=== PATIENT | female | born 1945 | race American Indian/Alaskan Native ===

== ENCOUNTER 2019-02-11 06:03 | Day surgery (SDC) | payer MEDICARE, OTHER ==
--- NOTE | 2019-02-06 12:53 | Anesthesia Consultation ---
Anesthesia Consult and Med Hx Date of service: 02/06/19 - Airway Anesthetic Teeth Evaluation: Good ROM Head & Neck: Adequate Mental/Hyoid Distance: Adequate Mallampati Class: Class II Intubation Access Assessment: Good - Pulmonary Exam CTA: Yes - Cardiac Exam Cardiac Exam: RRR - Pre-Operative Health Status ASA Pre-Surgery Classification: ASA2 Proposed Anesthetic Plan: General - Pulmonary Hx Smoking: No Hx Asthma: Yes (NO MEDS) Hx Sleep Apnea: No (ANTON PRE SCREEN LOW RISK.) - Cardiovascular System Hx Hypertension: Yes (X 40 YRS) Hx Heart Murmur: Yes - Additional Comments Anesthesia Medical History Comments: Pt cleared by cardiology , for GA for lumpectomy
[~2019-02-11 06:03] MED LIST: ANCEF/STERILE WATER 2 GM/20 ML 2 GM/20 ML SYRINGE IV NR
[2019-02-11] MEDS ORDERED: NACL BACTERIOSTATIC INFILTRATI ONE (06:25)
[2019-02-11] MEDS ORDERED: LACTATED RINGERS 1,000 ML ONE (06:25)
[2019-02-11] MEDS ORDERED: SUBLIMAZE IV PRN (07:30)
[2019-02-11] MEDS ORDERED: XYLOCAINE MPF 2% ONE (07:30)
[2019-02-11] MEDS ORDERED: ZOFRAN IV PRN (07:30)
--- NOTE | 2019-02-11 07:30 | Anesthesia Day of Surgery ---
Anesthesia Day of Surgery - Day of Surgery Patient Examined: Yes Patient H&P Reviewed: Yes Patient is NPO: Yes
[2019-02-11] MEDS ORDERED: TYLENOL PO NR (07:31)
[2019-02-11] MEDS ORDERED: DECADRON ONE (07:35)
[2019-02-11] MEDS ORDERED: MARCAINE-EPI 0.25%-1:200,000 INFILTRATI ONE (07:36)
[2019-02-11] MEDS ORDERED: DIPRIVAN 10 MG/ML IV ONE (07:36)
[2019-02-11] MEDS ORDERED: METHYLENE BLUE ONE (07:47)
[2019-02-11] MEDS ORDERED: NACL P/F VIAL (10 ML) 0 ML ONE (07:47)
[2019-02-11] MEDS ORDERED: SUBLIMAZE IV SCH (07:50)
[2019-02-11] MEDS ORDERED: NEURONTIN PO NR (08:00)
[2019-02-11] MEDS ORDERED: VERSED IV NR (08:00)
[2019-02-11] MEDS ORDERED: WATER FOR IRRIG STERILE IR ONE (09:30)
--- NOTE | 2019-02-11 11:16 | Mammography Report ---
SPECIMEN RADIOGRAPH LEFT BREAST Findings: A spiculated mass with a biopsy clip is identified in the specimen. For more detail, please refer to the operative report. Signer Name: Anshu Baxter MD Signed: 02/11/2019 11:12 AM Workstation Name: [id number]
--- NOTE | 2019-02-11 11:33 | Operative Report ---
Operative Report Operative Report: February 11, 2019 Preoperative diagnosis: Right breast cancer of the upper outer quadrant Postoperative diagnosis: Same Procedure: Right partial mastectomy of the upper outer quadrant and SLNB Surgeon: Ольга Neville MD Abalone Processor: Lizzie Lemos MD Anesthesia: General Findings: Right breast clip present within radiograph specimen; x 2 SLN Complications: None EBL: Minimal Disposition: PACU in good condition Indications for operative procedure: This is a 73 year old lady with newly diagnosed right breast cancer of the upper outer quadrant, Stage II [id number] ER/ID positive (IDCA around 10:00 position 8 cm from the nipple). Patient wished to proceed with breast conservation and understood if margins were positive additional surgery would be indicated. She understands the role of adjuvant radiation therapy and Oncotype DX will be obtained by medical oncology to determine if adjuvant chemotherapy is indicated. She wished to proceed with the above procedure. Procedure in detail: Anesthesia placed right pectoral block. Patient was then taken to the operating room. Gen. anesthesia was administered. The right nipple was injected with radioisotope. Right breast and axilla were prepped and draped in the normal sterile operative fashion. Timeout was performed. Gamma probe was inserted into the axilla. The area of hot spot was identified. A right axillary incision was made with a 15 blade knife with dissection taken down to the subcutaneous tissues. The axillary fascia was opened with the Bovie cautery. 2 SLNs were identified. All remaining counts were less than 10% of the highest count. Lymph node was sent to pathology for permanent processing. Hemostasis was obtained in the right axillary cavity. Axillary cavity was appropriately irrigated and suctioned. Hemostasis was noted. Axillary fascia was approximated and closed using interrupted 3-0 Vicryl and the skin brought together and closed using a running 4-0 Monocryl followed by skin affix. Attention was then taken towards the right breast. The ultrasound was used to kane the area of known cancer including both adjacent masses suspicouis for satellite lesions at the 10:00 position 8 cm from the nippel. Lateral breast incision was made with a 15 blade knife and dissection taken down to subcutaneous tissues. First began raising of the superior flap with dissection take down to the pectoralis muscle, followed by raising of the inferior flap, medial flap and lateral flap with all flaps taken down to the pectoralis muscle. The breast area of concern was appropriately removed posteriorly from the pectoralis muscle with the aid of the Bovie cautery. Specimen was marked and then sent to pathology and radiology; radiograph specimen with clip present. Breast cavity was irrigated and hemostasis was obtained. The subcutaneous tissues were approximated and closed using interrupted 3-0 Vicryl followed by closing of the skin with a running 4-0 Monocryl and skin affix. The breast cavity of resection was from the 7:30 to 11:00 positions given size of known cancer. The patient tolerated surgery very well and she was awaken from anesthesia without any complication and transported to PACU in good condition.
--- NOTE | 2019-02-11 11:36 | Short Stay Summary ---
Short Stay Documentation Date of service: 02/11/19 - History H&P: obtained from office - Allergies and Medications Current Medications: Allergies ibuprofen Allergy (Verified 01/31/19 16:31) Shortness of Breath, SWELLING Home Medications Medication Instructions Recorded Confirmed Last Taken Type Losartan [Cozaar] 50 mg PO QDAY 01/31/19 01/31/19 02/11/19 05:30 History amLODIPine [Norvasc] 10 mg PO DAILY 01/31/19 01/31/19 02/11/19 05:30 History Active Medications Acetaminophen (Tylenol) 650 mg PO ONCE NR Stop: 02/11/19 16:00 Last Admin: 02/11/19 07:45 Dose: 650 mg Documented by: Fentanyl (Sublimaze) 50 mcg IV Q5MIN PRN PRN Reason: Pain , Severe (7-10) Stop: 02/11/19 16:00 Fentanyl (Sublimaze) 100 mcg IV ONCE ROBSON Stop: 02/11/19 12:00 Last Admin: 02/11/19 07:55 Dose: 100 mcg Documented by: Gabapentin (Neurontin) 300 mg PO PREOP NR Stop: 02/11/19 16:00 Last Admin: 02/11/19 07:45 Dose: 300 mg Documented by: Cefazolin Sodium (Ancef/Sterile Water 2 Gm/20 Ml) 2 gm in 20 mls @ 80 mls/hr IV PREOP NR; Protocol Stop: 02/11/19 23:59 Midazolam HCl (Versed) 2 mg IV PREOP NR Stop: 02/11/19 23:59 Last Admin: 02/11/19 07:55 Dose: 2 mg Documented by: Ondansetron HCl (Zofran) 4 mg IV ONCE PRN PRN Reason: Nausea And Vomiting Stop: 02/11/19 16:00 - Brief post op/procedure progress note Date of procedure: 02/11/19 Pre-op diagnosis: Right breast cancer of the upper outer quadrant Post-op diagnosis: same Procedure: Right partial mastectomy with SLNB Anesthesia: GETA Findings: Right clip and mass present; x2 SLNs Surgeon: YESY MEADE Senior Research Executive: MAKSIM BROWNING Estimated blood loss: minimal Pathology: list (right partial mastectomy; x2 sln) Specimen disposition: to lab Condition: stable - Disposition Condition at discharge: Good Disposition: DC- TO HOME OR SELFCARE Short Stay Discharge Plan Activity: other (no heavy lifting) Diet: regular Wound: keep clean and dry (may shower in 48 hours; no baths, pools or lakes; wear breast binder) Follow up with: SARAH RAMÍREZ [Other] - 7 Days YESY MEADE MD [Staff Physician] - 7 Days
[2019-02-11] MEDS ORDERED: NORCO 5/325 PO PRN (12:25)
[2019-02-11 12:42] VITALS: BP 128/85
--- NOTE | 2019-02-11 22:17 | Post Anesthesia Evaluation ---
- Post Anesthesia Evaluation Patient Participated: Yes Airway Patent: Yes Stable Respiratory Function: Yes Nausea/Vomiting: No Temp > 96.8F: Yes Pain Manageable: Yes Adequeate Hydration: Yes Anesthesia Complications: No
== END 2019-02-11 13:10 | disposition home or self-care (01) ==
LOC: OR 06:03
PROVIDERS: ATTEND Surgery
DX: C50.411 Malignant neoplasm of upper-outer quadrant of right female breast (principal); I89.8 Other specified noninfective disorders of lymphatic vessels and lymph nodes; I10 Essential (primary) hypertension; J45.909 Unspecified asthma, uncomplicated; Z98.890 Other specified postprocedural states; Z79.899 Other long term (current) drug therapy; Z98.49 Cataract extraction status, unspecified eye; Z88.8 Allergy status to other drugs, medicaments and biological substances
CPT/HCPCS: 19301; 38525; 38792; 64450; 76098; 78800; 88307; 88333; 88342; A9541; J0690; J1100; J2250; J2405; J2704; J3010; J7120; Q9968

== ENCOUNTER 2019-03-13 06:48 | Day surgery (SDC) | payer MEDICARE ==
[~2019-03-13 06:48] MED LIST changes: -ANCEF/STERILE WATER 2 GM/20 ML 2 GM/20 ML SYRINGE IV NR; +ANCEF/STERILE WATER 2 GM/20 ML IV NR
[2019-03-13] MEDS ORDERED: LACTATED RINGERS 1,000 ML IV SCH (07:00)
[2019-03-13] MEDS ORDERED: NACL BACTERIOSTATIC INFILTRATI ONE (07:05)
[2019-03-13] MEDS ORDERED: MARCAINE 0.25% INFILTRATI ONE ×2 (07:18→08:33)
[2019-03-13] MEDS ORDERED: XYLOCAINE 1% 20 mL ONE (07:18)
[2019-03-13] MEDS ORDERED: DILAUDID IV PRN (07:23)
[2019-03-13] MEDS ORDERED: SUBLIMAZE IV NR (07:23)
[2019-03-13] MEDS ORDERED: SUBLIMAZE IV PRN (07:23)
[2019-03-13] MEDS ORDERED: ZOFRAN IV PRN (07:23)
[2019-03-13] MEDS ORDERED: TYLENOL PO NR (07:24)
--- NOTE | 2019-03-13 07:28 | Anesthesia Day of Surgery ---
Anesthesia Day of Surgery - Day of Surgery Patient Examined: Yes Patient H&P Reviewed: Yes Patient is NPO: Yes
--- NOTE | 2019-03-13 07:34 | Anesthesia Consultation ---
Anesthesia Consult and Med Hx Date of service: 03/13/19 - Pre-Operative Health Status ASA Pre-Surgery Classification: ASA2 Proposed Anesthetic Plan: General - Pulmonary Hx Smoking: No Hx Asthma: Yes (NO MEDS) Hx Sleep Apnea: No (ANTON PRE SCREEN LOW RISK.) - Cardiovascular System Hx Hypertension: Yes (X 40 YRS) Hx Heart Murmur: Yes - Other Systems Hx Cancer: Yes (RIGHT BREAST CANCER)
[2019-03-13] MEDS ORDERED: XYLOCAINE MPF 2% ONE (07:39)
[2019-03-13] MEDS ORDERED: SUBLIMAZE ONE (07:39)
[2019-03-13] MEDS ORDERED: ROBINUL ONE (07:39)
[2019-03-13] MEDS ORDERED: ZEMURON IV ONE (07:39)
[2019-03-13] MEDS ORDERED: DIPRIVAN 10 MG/ML IV ONE (07:39)
[2019-03-13] MEDS ORDERED: BLOXIVERZ ONE (07:39)
[2019-03-13] MEDS ORDERED: DECADRON ONE (07:43)
[2019-03-13] MEDS ORDERED: ZOFRAN ONE (07:43)
[2019-03-13] MEDS ORDERED: VERSED IV NR (08:00)
[2019-03-13] MEDS ORDERED: NEURONTIN PO NR (08:00)
[2019-03-13] MEDS ORDERED: XYLOCAINE 1% 20 mL INFILTRATI ONE (08:33)
[2019-03-13] MEDS ORDERED: WATER FOR IRRIG STERILE IR ONE (09:00)
--- NOTE | 2019-03-13 09:42 | Operative Report ---
Operative Report Operative Report: Date of Service: March 13, 2019 Preoperative diagnosis: Right breast cancer of the upper outer quadrant Postoperative diagnosis:Same Procedure: Right breast margin revision Surgeon: Ольга Neville MD Lead Level Designer: Lizzie Lemos MD Anesthesia: General Findings: Cephalad margin revision Complications: None EBL: Minimal Disposition: PACU in good condition Indications for operative procedure: This is a 74 year old lady with newly diagnosed multifocal Stage II right breast cancer of the upper outer quadrant, IDCA grade 2 [id number] ER/[place] positive. She recently underwent a right partial mastecomy with SLND. Cephalad margin positive. My concerns of proceeding with margin revision were discussed given large area of breast resected from partial mastectomy of 8x5 cm and patient with multifocal breast cancer with small breast size, partial mastectomy from the 7:00 to 10:30/11:00 positions of right breast. I recommended a mastectomy given large area of tissue removed from partial mastectomy and patient only wanted to proceed with breast conservation. She understood the possibility of breast cosmesis deformity and possibility of positive margin from revised margin. Patient understands the role of adjuvant XRT and anti-hormonal therapy. Patient wished to proceed with the above procedure. Procedure in detail: The patient was taken to the operating room and was placed supine. General anesthesia was administered. The right breast was prepped and draped in the normal sterile operative fashion. Timeout was performed. Skin incision was made through the prior breast incision with a 15 blade knife around the 8-10:00 positions. Subcutaneous tissues were opened with the aid of the Bovie cautery and knife. Seroma cavity was encountered and suctioned. Hemostasis was noted. Cephalad margin was then revised using the Bovie cautery. Specimen was marked and sent to pathology personally for orientation. Hemostasis was obtained with the Bovie cautery. Breast cavity was anesthetized with 1% lidocaine mixed with quarter percent Marcaine. The deep breast tissue were approximated and closed using interrupted 3-0 Vicryl and skin brought together and closed using a running 4-0 Monocryl followed by skin affix. She tolerated surgery very well and was awaken from anesthesia without any complications and transported to PACU in good condition.
--- NOTE | 2019-03-13 09:52 | Short Stay Summary ---
Short Stay Documentation Date of service: 03/13/19 - History H&P: obtained from office - Allergies and Medications Current Medications: Allergies ibuprofen Allergy (Verified 01/31/19 16:31) Shortness of Breath, SWELLING Home Medications Medication Instructions Recorded Confirmed Last Taken Type Losartan [Cozaar] 50 mg PO QDAY 01/31/19 03/01/19 03/13/19 05:20 History amLODIPine [Norvasc] 10 mg PO DAILY 01/31/19 03/01/19 03/13/19 05:20 History HYDROcodone/APAP 5-325 [[place] 1 each PO Q6HR PRN #30 tablet 02/11/19 03/13/19 02/21/19 Rx 5/325] HYDROcodone/APAP 5-325 [[place] 1 each PO Q6HR PRN #12 tablet 03/13/19 Unknown Rx 5/325] Active Medications Acetaminophen (Tylenol) 650 mg PO ONCE NR Stop: 03/13/19 13:00 Last Admin: 03/13/19 07:45 Dose: 650 mg Documented by: Cefazolin Sodium (Ancef/Sterile Water 2 Gm/20 Ml) 2 gm IV PREOP NR Stop: 03/13/19 23:59 Fentanyl (Sublimaze) 50 mcg IV Q5MIN PRN PRN Reason: Pain , Severe (7-10) Stop: 03/13/19 20:00 Fentanyl (Sublimaze) 100 mcg IV ONCE NR Stop: 03/13/19 12:00 Gabapentin (Neurontin) 300 mg PO PREOP NR Stop: 03/13/19 16:00 Last Admin: 03/13/19 07:45 Dose: 300 mg Documented by: Hydromorphone HCl (Dilaudid) 0.5 mg IV Q10MIN PRN PRN Reason: Pain , Severe (7-10) Stop: 03/13/19 20:00 Lactated Ringer's (Lactated Ringers) 1,000 mls @ 100 mls/hr IV DIRECT ROBSON Last Admin: 03/13/19 07:10 Dose: 100 mls/hr Documented by: Midazolam HCl (Versed) 2 mg IV PREOP NR Stop: 03/13/19 23:59 Last Admin: 03/13/19 07:45 Dose: 2 mg Documented by: Ondansetron HCl (Zofran) 4 mg IV ONCE PRN PRN Reason: Nausea And Vomiting Stop: 03/13/19 16:00 - Brief post op/procedure progress note Date of procedure: 03/13/19 Pre-op diagnosis: Right breast cancer of the upper outer quadrant with positive margin Post-op diagnosis: same Procedure: Right breast margin revision Anesthesia: GETA Findings: Right breast cephalad margin revision Surgeon: YESY MEADE Director Talent: MAKSIM BROWNING Estimated blood loss: minimal Pathology: list (right cephalad margin revision) Specimen disposition: to lab Condition: stable - Disposition Condition at discharge: Good Disposition: DC-01 TO HOME OR SELFCARE Short Stay Discharge Plan Activity: other (no heavy lifting) Diet: regular Wound: keep clean and dry (may shower in 48 hours) Follow up with: PRIMARY CAREMD [Primary Care Provider] - 7 Days YESY MEADE MD [Staff Physician] - 7 Days Prescriptions: HYDROcodone/APAP 5-325 [[place] 5/325] 1 each PO Q6HR PRN #12 tablet PRN Reason: Pain
[2019-03-13 10:05] VITALS: BP 147/75
--- NOTE | 2019-03-13 13:18 | Post Anesthesia Evaluation ---
- Post Anesthesia Evaluation Patient Participated: Yes Airway Patent: Yes Stable Respiratory Function: Yes Nausea/Vomiting: No Temp > 96.8F: Yes Pain Manageable: Yes Adequeate Hydration: Yes Anesthesia Complications: No Block Receding Appropriately: Yes Patient on Ventilator: Yes
== END 2019-03-13 10:45 | disposition home or self-care (01) ==
LOC: OR 06:48
PROVIDERS: ATTEND Surgery
DX: C50.411 Malignant neoplasm of upper-outer quadrant of right female breast (principal); I10 Essential (primary) hypertension; J45.909 Unspecified asthma, uncomplicated; Z98.890 Other specified postprocedural states; Z79.899 Other long term (current) drug therapy; Z98.49 Cataract extraction status, unspecified eye; Z88.8 Allergy status to other drugs, medicaments and biological substances
CPT/HCPCS: 19301; 88307; 88341; 88342; J0690; J1100; J2250; J2405; J2704; J2710; J3010; J7120

== ENCOUNTER 2019-09-11 06:42 | Day surgery (SDC) | payer MEDICARE ==
[~2019-09-11 06:42] MED LIST changes: -ANCEF/STERILE WATER 2 GM/20 ML IV NR; +ceFAZolin/Water 2 GM/20 ML 2 GM/20 ML SYRINGE IV NR
[2019-09-11] MEDS ORDERED: BACTERIOSTATIC SODIUM CHLORIDE 0.9% 30 ML VIAL INFILTRATI ONE (06:55)
[2019-09-11] MEDS ORDERED: LACTATED RINGERS 1,000 ML IV SCH (07:00)
[2019-09-11] MEDS ORDERED: MIDAZOLAM 2 MG/2 ML INJ IV NR (07:19)
[2019-09-11] MEDS ORDERED: FAMOTIDINE 20 MG/2 ML INJ IV NR (07:20)
--- NOTE | 2019-09-11 07:21 | Anesthesia Consultation ---
Anesthesia Consult and Med Hx Date of service: 09/11/19 - Airway Anesthetic Teeth Evaluation: Good, Caps, Bridges ROM Head & Neck: Adequate Mental/Hyoid Distance: Adequate Mallampati Class: Class II Intubation Access Assessment: Probably Good - Pre-Operative Health Status ASA Pre-Surgery Classification: ASA2 Proposed Anesthetic Plan: General - Pulmonary Hx Smoking: No Hx Asthma: Yes (RESCUE INHALER) Hx Sleep Apnea: No (ANTON PRE SCREEN LOW RISK.) - Cardiovascular System Hx Hypertension: Yes (X 40 YRS) Hx Heart Murmur: Yes - Other Systems Hx Cancer: Yes (Right breast CA, s/p bilateral mastectomy)
--- NOTE | 2019-09-11 07:23 | Anesthesia Day of Surgery ---
Anesthesia Day of Surgery - Day of Surgery Patient Examined: Yes Patient H&P Reviewed: Yes Patient is NPO: Yes
[2019-09-11] MEDS ORDERED: GENTAMICIN 40 MG/ML VIAL 2 ML ONE (07:31)
[2019-09-11] MEDS ORDERED: ceFAZolin 1 GM VIAL ONE (07:31)
[2019-09-11] MEDS ORDERED: SODIUM CHLORIDE P/F VIAL 10 ML 20 ML ONE (07:31)
[2019-09-11] MEDS ORDERED: LIDOCAINE 1%/EPINEPHRINE 1:100,000 VIAL (20 ML) INFILTRATI ONE ×2 (07:32→09:38)
[2019-09-11] MEDS ORDERED: BACITRACIN 50,000 UNIT VIAL ONE (07:32)
[2019-09-11] MEDS ORDERED: ONDANSETRON 4 MG/2 ML INJ ONE (07:40)
[2019-09-11] MEDS ORDERED: fentaNYL 250 MCG/5 ML INJ ONE (07:41)
[2019-09-11] MEDS ORDERED: LIDOCAINE MPF (2%) 20 MG/1 ML VIAL 5 ML ONE (07:41)
[2019-09-11] MEDS ORDERED: PROPOFOL 200 MG/20 ML VIAL IV ONE (07:42)
[2019-09-11] MEDS ORDERED: ROCURONIUM 50 MG/5 ML INJ IV ONE ×2 (08:02→09:35)
[2019-09-11] MEDS ORDERED: MIDAZOLAM 2 MG/2 ML INJ ONE (08:04)
[2019-09-11] MEDS ORDERED: SUCCINYLCHOLINE CHLORIDE 200 MG/10 ML INJ MDV ONE (09:00)
[2019-09-11] MEDS ORDERED: ceFAZolin 1 GM VIAL IV ONE (09:36)
[2019-09-11] MEDS ORDERED: BACITRACIN 50,000 UNIT VIAL IR ONE (09:36)
[2019-09-11] MEDS ORDERED: SODIUM CHLORIDE 0.9% P/F 10 ML VIAL INFILTRATI ONE (09:37)
[2019-09-11] MEDS ORDERED: SODIUM CHLORIDE 0.9% IRR 1,500 ML BOTTLE IR ONE (09:38)
[2019-09-11] MEDS ORDERED: GLYCOPYRROLATE 0.4 MG/2 ML INJ ONE ×4 (09:48→09:51)
[2019-09-11] MEDS ORDERED: NEOSTIGMINE 10MG/10 ML INJ MDV ONE (09:49)
[2019-09-11] MEDS ORDERED: ePHEDrine SULFATE 50 MG/1 ML INJ ONE (10:19)
[2019-09-11] MEDS ORDERED: SODIUM CHLORIDE P/F VIAL 10 ML 10 ML ONE (10:21)
--- NOTE | 2019-09-11 11:03 | Operative Report ---
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 Bernie Smart Fur Grader: None Anesthesia: General EBL: Minimal Indications: This patient is a 74 year old AAF who previously underwent bilateral breast reconstruction with tissue expanders and FlexHD after mastectomy. She has successfully completed in-office expansion, so the decision was made to return to the OR to do an exchange of her tissue cascara bark cutter for a permanent prosthesis. The benefits as well as the risks of the procedure were explained to the patient in great detail including but not limited to infection, bleeding, seroma, hematoma, implant rupture, capsular contracture, implant malposition and the need for further reconstructive surgery. She was given the opportunity to ask questions. Informed consent was obtained. Procedure: After review of pertinent history and physical exam findings the patient was brought into the operating room and placed supine on the OR table. After induction of adequate general endotracheal anesthesia the patient's chest was prepped and draped in the usual sterile surgical fashion. To begin, we performed the tissue cascara bark cutter removal on the right breast. A 500cc [place] tissue cascara bark cutter, intact, was removed from the right breast pocket. Extensive capsulotomy was performed in the well-formed capsule to reshape the implant pocket by lowering the IMF to match the contralateral side better and also expand laterally where the patient's previous procedure left a tethered scar. Once hemostasis was achieved, the pocket was irrigated thoroughly with triple antibiotic solution. Using a Cobb funnel, an 620 cc [place] Memory Shape (SN [id number]) implant was introduced into the pocket without difficulty. We then began our 3-layered closure using 2-0 and 3-0 Monocryl, followed by Dermabond. Turning our attention to the left breast, the exact same procedure was repeated and a [place] Memory Shape silicone implant 620cc (SN [id number]) was placed, followed by a 3-layered closure. Once all incisions were closed, they were sealed with Dermabond and dressed with Telfa and tegaderm dressings. This was followed by placement of a KARLA wraps for optimal implant pocket shaping. The patient was then awakened from general anesthesia and transferred to PACU in stable condition. There were no complications. All sponge needle and instrument counts were correct at the end of the case.
[2019-09-11] MEDS: HYDROmorphone 1 MG/1 ML INJ IV PRN ×2 (11:22→11:32)
[2019-09-11] MEDS ORDERED: HYDROmorphone 1 MG/1 ML INJ ONE (11:22)
[2019-09-11] MEDS ORDERED: HYDROcodone/ACETAMINOPHEN 5-325 MG TAB PO PRN (11:41)
[2019-09-11] MEDS ORDERED: HYDROcodone/ACETAMINOPHEN 5-325 MG TAB ONE (11:46)
[2019-09-11 11:48] VITALS: BP 140/83
[2019-09-11] MEDS ORDERED: ONDANSETRON 4 MG/2 ML INJ IV PRN (12:00)
--- NOTE | 2019-09-11 14:20 | Post Anesthesia Evaluation ---
- Post Anesthesia Evaluation Patient Participated: Yes Airway Patent: Yes Stable Respiratory Function: Yes Nausea/Vomiting: No Temp > 96.8F: Yes Pain Manageable: Yes Adequeate Hydration: Yes Anesthesia Complications: No Block Receding Appropriately: Not Applicable Patient on Ventilator: No
== END 2019-09-11 13:05 | disposition home or self-care (01) ==
LOC: OR 06:42
PROVIDERS: ATTEND Plastic Surgery
DX: Z41.1 Encounter for cosmetic surgery (principal); I10 Essential (primary) hypertension; J45.909 Unspecified asthma, uncomplicated; Z85.3 Personal history of malignant neoplasm of breast; Z90.13 Acquired absence of bilateral breasts and nipples; Z88.8 Allergy status to other drugs, medicaments and biological substances; Z79.899 Other long term (current) drug therapy; Z98.49 Cataract extraction status, unspecified eye; Z90.11 Acquired absence of right breast and nipple; Z80.3 Family history of malignant neoplasm of breast
CPT/HCPCS: 11970; 88302; 88305; C1789; J0330; J0690; J1170; J1580; J2250; J2405; J2704; J2710; J3010; J7120; 88300